=== PATIENT | male | born 1965 | race Hispanic/Latino ===

== ENCOUNTER → 2018-10-31 | Outpatient (CLI) | payer BC | END | disposition home or self-care (01) | LOC: SHCH 12:45 | PROVIDERS: ATTEND Internal Medicine Cardiovascular Disease | DX: I87.2 Venous insufficiency (chronic) (peripheral) (principal) | CPT/HCPCS: 93970 ==

== ENCOUNTER 2019-07-21 04:19 | Emergency (ER) | payer BC ==
[2019-07-21 04:45] LABS: BASOPHILS % (AUTO) 0.5 % (0.0-5.0); EOSINOPHILS % (AUTO) 2.5 % (0.0-8.0); HEMATOCRIT 41.1 % (42-54); LYMPHOCYTES % (AUTO) 34.5 % (21.0-51.0); MEAN CORPUSCULAR HEMOGLOBIN 22.9 pg (27.0-33.0); MEAN CORPUSCULAR HGB CONC 30.7 g/dL (32.0-36.0); MEAN CORPUSCULAR VOLUME 74.7 fL (79-99); MONOCYTES % (AUTO) 6.7 % (3.0-13.0); NEUTROPHILS % (AUTO) 55.3 % (40.0-77.0); PLATELET COUNT (AUTO) 199 K/uL (130-400); RED CELL DISTRIBUTION WIDTH 15.7 % (11.0-15.5); WHITE BLOOD COUNT (AUTO) 6.3 K/uL (4.8-10.8)
[2019-07-21 04:47] LABS: APPEARANCE,URINE Clear (CLEAR); BILIRUBIN,URINE Negative (NEGATIVE); COLOR,URINE Yellow (YELLOW); GLUCOSE, URINE (UA) >=1000 mg/dL (NEGATIVE); KETONES,URINE Negative (NEGATIVE); LEUKOCYTE ESTERASE ,URINE Negative (NEGATIVE); NITRATE,URINE Negative (NEGATIVE); OCCULT BLOOD,URINE Negative (NEGATIVE); PH,URINE 5.5 (5.0-8.0); PROTEIN,URINE POS 1+ mg/dL (NEGATIVE); UROBILINOGEN,URINE 0.2 mg/dL (0.2-1.0)
[2019-07-21 04:53] LABS: AMPHET/METH SCREEN,URINE NEGATIVE (NEGATIVE); BARBITURATE SCREEN, URINE NEGATIVE (NEGATIVE); BENZODIAZEPINES SCREEN,URINE NEGATIVE (NEGATIVE); CANNABINOID SCREEN,URINE NEGATIVE (NEGATIVE); COCAINE SCREEN,URINE NEGATIVE (NEGATIVE); OPIATE SCREEN,URINE NEGATIVE (NEGATIVE); PHENCYCLIDINE SCREEN,URINE NEGATIVE (NEGATIVE)
[2019-07-21 04:57] LABS: BACTERIA,URINE None Seen /HPF (None Seen); RBC,URINE None Seen /HPF (0-1); SQUAMOUS EPITHELIAL CELL,UR Few /HPF (0-2); WBC,URINE None Seen /HPF (0-1)
[2019-07-21 05:03] LABS: CARBON DIOXIDE 24 mmol/L (21-32); CHLORIDE 99 mmol/L (101-111); CREATININE 1.5 mg/dL (0.5-1.5); GLOMERULAR FILTR. RATE CALC 51 mL/min (>60); GLUCOSE,RANDOM 268 mg/dL (70-105); POTASSIUM 3.6 mmol/L (3.5-5.1); SODIUM SERUM 138 mmol/L (136-145); UREA NITROGEN, BLOOD 18 mg/dL (7-18)
[2019-07-21 05:14] LABS: ALANINE AMINOTRANSFERASE 107 U/L (12-78); ALBUMIN 3.9 g/dL (3.5-5.0); ALCOHOL, BLOOD 141 mg/dL (0-10); ASPARTATE AMINOTRANSFERASE 117 U/L (10-37); BILIRUBIN,TOTAL 0.4 mg/dL (0.2-1.0); TOTAL PROTEIN, SERUM 8.5 g/dL (6.0-8.3)
[2019-07-21 05:19] LABS: CREATINE KINASE, TOTAL 417 U/L (21-232)
[2019-07-21 05:20] LABS: ACETAMINOPHEN < 1 mcg/mL (10-29); SALICYLATE < 2.8 mg/dL (2.8-20.0)
== END 2019-07-21 12:29 | disposition home or self-care (01) ==
LOC: EDH 04:19
DX: T42.6X2A Poisoning by other antiepileptic and sedative-hypnotic drugs, intentional self-harm, initial encounter (principal); T45.522A Poisoning by antithrombotic drugs, intentional self-harm, initial encounter; F10.129 Alcohol abuse with intoxication, unspecified; E11.9 Type 2 diabetes mellitus without complications; I10 Essential (primary) hypertension; F41.9 Anxiety disorder, unspecified; F32.9 Major depressive disorder, single episode, unspecified; Z79.899 Other long term (current) drug therapy; Z98.890 Other specified postprocedural states; Y92.89 Other specified places as the place of occurrence of the external cause
CPT/HCPCS: 36415; 80053; 80305; 81001; 82550; 84484; 85025; 93005; 99284; G0480 ×3; G0481

== ENCOUNTER → 2020-10-12 | Outpatient (CLI) | payer BC | END | disposition home or self-care (01) | LOC: RAH 07:47 | PROVIDERS: ATTEND Internal Medicine Cardiovascular Disease | DX: Z09 Encounter for follow-up examination after completed treatment for conditions other than malignant neoplasm (principal); I82.492 Acute embolism and thrombosis of other specified deep vein of left lower extremity; I87.2 Venous insufficiency (chronic) (peripheral) | CPT/HCPCS: 93971 ==

== ENCOUNTER → 2021-03-01 | Outpatient (CLI) | payer BC | END | disposition home or self-care (01) | LOC: SHCH 15:25 | PROVIDERS: ATTEND Internal Medicine Cardiovascular Disease | DX: I51.7 Cardiomegaly (principal); E66.9 Obesity, unspecified; E78.5 Hyperlipidemia, unspecified; Z83.3 Family history of diabetes mellitus | CPT/HCPCS: 93306 ==

== ENCOUNTER → 2021-03-06 | Outpatient (CLI) | payer BC ==
[~2021-03-06] VITALS: Ht 172.7 cm; Wt 99.8 kg
[~2021-03-06] MED LIST: REGADENOSON 0.4 MG/5 ML PF SYG IVP SCH
== END | disposition home or self-care (01) ==
LOC: SHCH 08:46
PROVIDERS: ATTEND Internal Medicine Cardiovascular Disease
DX: R06.09 Other forms of dyspnea (principal); I20.9 Angina pectoris, unspecified
CPT/HCPCS: 78452; 93017; 96374; A9500 ×2; J2785

== ENCOUNTER → 2022-01-23 | Outpatient (CLI) | payer BC | END | disposition home or self-care (01) | LOC: RAH 10:43 | PROVIDERS: ATTEND Internal Medicine Gastroenterology | DX: R93.3 Abnormal findings on diagnostic imaging of other parts of digestive tract (principal) | CPT/HCPCS: 78264; A9541 ==

== ENCOUNTER → 2023-10-05 | Outpatient (CLI) | payer BC | LOC: SHCH 12:19 | PROVIDERS: ATTEND Internal Medicine Cardiovascular Disease | DX: I73.9 Peripheral vascular disease, unspecified (principal) | CPT/HCPCS: 93925 ==

== ENCOUNTER → 2024-01-27 | Outpatient (CLI) | payer BC | END | disposition home or self-care (01) | LOC: SHCH 09:35 | PROVIDERS: ATTEND Internal Medicine Cardiovascular Disease | DX: I07.1 Rheumatic tricuspid insufficiency (principal); R07.9 Chest pain, unspecified; I25.10 Atherosclerotic heart disease of native coronary artery without angina pectoris | CPT/HCPCS: 93306 ==

== ENCOUNTER → 2024-02-04 | Outpatient (CLI) | payer BC ==
[2024-02-04] MEDS: REGADENOSON 0.4 MG/5 ML PF SYG IVP ONE (11:14)
== END | disposition home or self-care (01) ==
LOC: SHCH 08:16
PROVIDERS: ATTEND Internal Medicine Cardiovascular Disease
DX: R07.9 Chest pain, unspecified (principal); I25.10 Atherosclerotic heart disease of native coronary artery without angina pectoris; R94.31 Abnormal electrocardiogram [ECG] [EKG]
CPT/HCPCS: 78452; 93017; J2785; A9500 ×2; 96374

== ENCOUNTER 2024-03-23 06:31 | Observation (INO) | payer BC ==
[2024-03-19 12:37] VITALS: BP 127/67; PULSE 73; RESP 16; TEMP 97.3
[2024-03-19 12:41] LABS: BASOPHILS # (AUTO) 0.02 K/uL (0.00-0.20); BASOPHILS % (AUTO) 0.3 % (0.0-5.0); EOSINOPHILS # (AUTO) 0.14 K/uL (0.00-0.70); HEMATOCRIT 41.3 % (42-54); IMMATURE GRANULOCYTE ABSOLUTE 0.03 K/uL (0-1); LYMPHOCYTES # (AUTO) 1.8 K/uL (1.0-4.8); LYMPHOCYTES % (AUTO) 26.2 % (21.0-51.0); MEAN CORPUSCULAR HEMOGLOBIN 23.2 pg (27.0-33.0); MEAN CORPUSCULAR HGB CONC 31.2 g/dL (32.0-36.0); MEAN CORPUSCULAR VOLUME 74.4 fL (79-99); MONOCYTES # (AUTO) 0.6 K/uL (0.1-1.0); MONOCYTES % (AUTO) 8.3 % (3.0-13.0); NEUTROPHILS # (AUTO) 4.3 K/uL (1.8-7.7); NEUTROPHILS % (AUTO) 62.8 % (40.0-77.0); PLATELET COUNT (AUTO) 196 K/uL (130-400); RED BLOOD CELL COUNT(AUTO) 5.55 MIL/uL (4.50-6.20); RED CELL DISTRIBUTION WIDTH 13.9 % (11.0-15.5); WHITE BLOOD COUNT (AUTO) 6.8 K/uL (4.8-10.8)
[2024-03-19 12:49] LABS: CREATININE 1.5 mg/dL (0.5-1.3); POTASSIUM 3.9 mmol/L (3.5-5.1)
[2024-03-19 12:59] LABS: APPEARANCE,URINE CLEAR (CLEAR); BILIRUBIN,URINE NEGATIVE (NEGATIVE); COLOR,URINE LIGHT-YELLOW (YELLOW); GLUCOSE, URINE (UA) >=1000 mg/dL (NEGATIVE); KETONES,URINE NEGATIVE (NEGATIVE); LEUKOCYTE ESTERASE ,URINE NEGATIVE Leu/uL (NEGATIVE); NITRATE,URINE NEGATIVE (NEGATIVE); OCCULT BLOOD,URINE NEGATIVE (NEGATIVE); PH,URINE 5.5 (5.0-8.0); PROTEIN,URINE 30 mg/dL (NEGATIVE); UROBILINOGEN,URINE 0.2 mg/dL (0.2-1.0)
[2024-03-19 13:02] LABS: INR 1.01 (0.85-1.15); PROTHROMBIN TIME 10.9 SEC (9.6-11.6)
[2024-03-19 13:03] LABS: PARTIAL THROMBOPLASTIN TIME 27.4 SEC (26.3-35.5)
[2024-03-19 13:15] LABS: B-TYPE NATRIURETIC PEPTIDE 13 pg/mL (0-100)
[2024-03-19 13:16] LABS: ADD UA MICROSCOPIC YES
[2024-03-19 13:23] LABS: RBC,URINE 0-1 /HPF (0-1); WBC,URINE 0-1 /HPF (0-1)
[~2024-03-23] VITALS: Ht 172.7 cm; Wt 99.8 kg
[2024-03-23] VITALS (25 sets, daily range): BP systolic 92–157; BP diastolic 45–100; PULSE 62–76; RESP 13–27; TEMP 97.1–98.7; O2SAT 95–99
[~2024-03-23 06:31] MED LIST changes: +AEC81 PO; +AMLO-257 PO; +CETI10CA5 PO; +DAPA10TA PO; +DICY10CA2 PO; +DULA0.75 SQ; +DULO60CA64 PO; +FENO54TA6 PO; +FERR-82 PO; +FOLI1 PO; +FURO20TA4 PO; +GABA300C PO; +INSU100I56 SQ; +INSU100V37 SQ; +ISOS30TA92 PO; +KETO.5OS OU; +LEVO100T12 PO; +LISI40TA9 PO; +MAGN250T35 PO; +METO-391 PO; +METO5TAB2 PO; +MULT-1367 PO; +PANT40TA54 PO; -REGADENOSON 0.4 MG/5 ML PF SYG IVP SCH; +ROSU10TA72 PO; +THIA250T10 PO; +VITAMIN B12 PO; +VITAMIN D3 PO
[2024-03-23] MEDS: 0.9%NACL 1000ML 1,000 ML IV ONE (08:19)
[2024-03-23] MEDS ORDERED: LIDOCAINE HCL 400MG/20ML VIAL ONE (08:29)
[2024-03-23] MEDS ORDERED: FENTanyl CITRate PF 50 MCG/1 ML 2ML VIAL ONE (08:29)
[2024-03-23] MEDS ORDERED: IOHEXOL 350 MG/ML 100ML INFUS..BTL IV ONE (08:30)
[2024-03-23] MEDS ORDERED: NITROGLYCERIN 50MG VIAL ONE (08:30)
[2024-03-23] MEDS ORDERED: MIDAZOLAM HCL 1 MG/ML 2ML VIAL ONE (08:31)
[2024-03-23] MEDS ORDERED: HEParin-NS 1,000 UNIT/500 ML 1,000 ML IV ONE (08:31)
[2024-03-23] MEDS ORDERED: BIVALIRUDIN 250 MG/VIAL IV ONE (08:38)
[2024-03-23] MEDS ORDERED: cloPIDOgrel 300MG TAB ONE (09:28)
[2024-03-23] MEDS ORDERED: DEXTROSE 50%-WATER 50 ML DISP.SYRIN IV PRN (10:00)
[2024-03-23] MEDS ORDERED: GLUCAGON 1MG KIT 1 MG ML IM PRN (10:00)
[2024-03-23] MEDS ORDERED: NITROGLYCERIN 0.4 MG SL TAB SL PRN (10:00)
[2024-03-23] MEDS: INSULIN humuLIN R 100 UNIT/ML 3ML SQ SCH (11:30)
[2024-03-24] VITALS (17 sets, daily range): BP systolic 135–181; BP diastolic 58–89; PULSE 66–78; RESP 15–63; TEMP 97.8–99; O2SAT 96
[2024-03-24 08:06] LABS: CREATININE 1.3 mg/dL (0.5-1.3); POTASSIUM 3.8 mmol/L (3.5-5.1)
[2024-03-24] MEDS: cloPIDOgrel 75MG TAB PO SCH (08:26)
[2024-03-24] MEDS ORDERED: 0.9% NACL 500ML IV.SOLN 500 ML IV SCH (08:30)
[2024-03-24] MEDS: amLODIPine 5 MG TAB PO ONE (11:25)
[2024-03-24] MEDS: metOPROLol sucCINATE 50 MG TAB.SR.24H PO ONE (11:25)
[2024-03-24] MEDS: LISINOPRIL 40 MG TABLET PO ONE (11:26)
[2024-03-24] MEDS: ISOSORBIDE MONO 30MG SR TAB PO ONE (13:16)
[2024-03-24] MEDS ORDERED: CLOP75TA32 PO (15:16)
== END 2024-03-24 15:40 | disposition home or self-care (01) ==
LOC: DAH 06:31 → DAHIP 06:32 → DAH 06:32 → 2BH 14:11
PROVIDERS: ADMIT Internal Medicine Cardiovascular Disease; ATTEND Internal Medicine Cardiovascular Disease
DX: I25.110 Atherosclerotic heart disease of native coronary artery with unstable angina pectoris (principal); I87.2 Venous insufficiency (chronic) (peripheral); I10 Essential (primary) hypertension; E78.49 Other hyperlipidemia; E11.51 Type 2 diabetes mellitus with diabetic peripheral angiopathy without gangrene; E66.9 Obesity, unspecified; Z79.4 Long term (current) use of insulin; Z68.33 Body mass index [BMI] 33.0-33.9, adult; Z95.5 Presence of coronary angioplasty implant and graft
CPT/HCPCS: 80048 ×2; 83880; 85025; 85610; 85730; 81001; 36415 ×2; 71045; 93005 ×2; 93458; 96372; 82948 ×4; C1894 ×2; C1725; C1874; C1769; C1887; Q9965 ×2; G0378 ×30; J3010; J3490 ×2; J7030; J2250; J1644; J0583; J1815; Q9967; A4215; A4223 ×3; A6402; A4222; A6260; A4221; A4663; A4216; A4606; C9600; 36430; 99156; 99157

== ENCOUNTER 2024-03-31 06:23 | Observation (INO) | payer BC ==
[2024-03-27 14:36] LABS: BASOPHILS # (AUTO) 0.01 K/uL (0.00-0.20); BASOPHILS % (AUTO) 0.2 % (0.0-5.0); EOSINOPHILS % (AUTO) 2.3 % (0.0-8.0); HEMATOCRIT 43.2 % (42-54); IMMATURE GRANULOCYTE ABSOLUTE 0.02 K/uL (0-1); LYMPHOCYTES # (AUTO) 1.4 K/uL (1.0-4.8); LYMPHOCYTES % (AUTO) 32.2 % (21.0-51.0); MEAN CORPUSCULAR HEMOGLOBIN 22.8 pg (27.0-33.0); MEAN CORPUSCULAR HGB CONC 30.6 g/dL (32.0-36.0); MEAN CORPUSCULAR VOLUME 74.5 fL (79-99); MONOCYTES # (AUTO) 0.5 K/uL (0.1-1.0); MONOCYTES % (AUTO) 10.4 % (3.0-13.0); NEUTROPHILS # (AUTO) 2.4 K/uL (1.8-7.7); NEUTROPHILS % (AUTO) 54.4 % (40.0-77.0); PLATELET COUNT (AUTO) 169 K/uL (130-400); RED CELL DISTRIBUTION WIDTH 13.5 % (11.0-15.5); WHITE BLOOD COUNT (AUTO) 4.4 K/uL (4.8-10.8)
[2024-03-27 14:39] VITALS: BP 134/69; PULSE 74; RESP 16; TEMP 97.3
[2024-03-27 14:46] LABS: APPEARANCE,URINE CLEAR (CLEAR); BILIRUBIN,URINE NEGATIVE (NEGATIVE); COLOR,URINE LIGHT-YELLOW (YELLOW); GLUCOSE, URINE (UA) >=1000 mg/dL (NEGATIVE); KETONES,URINE NEGATIVE (NEGATIVE); LEUKOCYTE ESTERASE ,URINE NEGATIVE Leu/uL (NEGATIVE); NITRATE,URINE NEGATIVE (NEGATIVE); OCCULT BLOOD,URINE NEGATIVE (NEGATIVE); PH,URINE 5.5 (5.0-8.0); PROTEIN,URINE 70 mg/dL (NEGATIVE); UROBILINOGEN,URINE 0.2 mg/dL (0.2-1.0)
[2024-03-27 14:48] LABS: INR 1.01 (0.85-1.15); PROTHROMBIN TIME 10.9 SEC (9.6-11.6)
[2024-03-27 14:50] LABS: CREATININE 1.5 mg/dL (0.5-1.3); PARTIAL THROMBOPLASTIN TIME 28.2 SEC (26.3-35.5); POTASSIUM 4.2 mmol/L (3.5-5.1)
[2024-03-27 14:50] LABS: ADD UA MICROSCOPIC YES
[2024-03-27 14:51] LABS: RBC,URINE 0-1 /HPF (0-1)
[2024-03-27 15:08] LABS: B-TYPE NATRIURETIC PEPTIDE < 5 pg/mL (0-100)
[~2024-03-31] VITALS: Ht 172.7 cm; Wt 98.4 kg
[2024-03-31] VITALS (13 sets, daily range): BP systolic 123–156; BP diastolic 57–74; PULSE 61–76; RESP 12–18; TEMP 97.5–98.5; O2SAT 98
[~2024-03-31 06:23] MED LIST changes: +CLOP75TA32 PO
[2024-03-31] MEDS: 0.9%NACL 1000ML 1,000 ML IV ONE (07:08)
[2024-03-31] MEDS: 0.9%NACL 1000ML 1,000 ML IV SCH ×2 (07:30→16:23)
[2024-03-31] MEDS ORDERED: BIVALIRUDIN 250 MG/VIAL IV ONE ×2 (08:40→10:22)
[2024-03-31] MEDS ORDERED: IOHEXOL-350 50ML VIAL IV ONE ×2 (08:41→11:14)
[2024-03-31] MEDS ORDERED: HEParin 10,000 UNIT/10ML (1,000 UNIT/ML) VIAL ONE (08:41)
[2024-03-31] MEDS ORDERED: HEParin-NS 1,000 UNIT/500 ML 1,000 ML IV ONE (08:41)
[2024-03-31] MEDS ORDERED: LIDOCAINE HCL 400MG/20ML VIAL ONE (08:42)
[2024-03-31] MEDS ORDERED: NITROGLYCERIN 50MG VIAL ONE (08:42)
[2024-03-31 08:55] LABS: CREATININE 1.1 mg/dL (0.5-1.3); POTASSIUM 3.6 mmol/L (3.5-5.1)
[2024-03-31] MEDS ORDERED: FENTanyl CITRate PF 50 MCG/1 ML 2ML VIAL ONE (08:57)
[2024-03-31] MEDS ORDERED: MIDAZOLAM HCL 1 MG/ML 2ML VIAL ONE ×2 (08:57→10:00)
[2024-03-31] MEDS ORDERED: HEParin-NS 1,000 UNIT/500 ML 500 ML IV ONE (10:09)
[2024-03-31] MEDS ORDERED: IOHEXOL-350 75 ML VIAL IV ONE (10:43)
[2024-03-31] MEDS ORDERED: cloPIDOgrel 300MG TAB ONE (11:31)
[2024-03-31] MEDS ORDERED: ASPIRIN 81MG CHEW TAB ONE (11:32)
[2024-03-31] MEDS ORDERED: DEXTROSE 50%-WATER 50 ML DISP.SYRIN IV PRN (12:00)
[2024-03-31] MEDS ORDERED: GLUCAGON 1MG KIT 1 MG ML IM PRN (12:00)
[2024-03-31] MEDS ORDERED: metoPROLOL tartRATE 1 MG/ML 5ML VIAL IV PRN (12:00)
[2024-03-31] MEDS ORDERED: NITROGLYCERIN 0.4 MG SL TAB SL PRN (12:00)
[2024-03-31] MEDS: INSULIN humuLIN R 100 UNIT/ML 3ML SQ SCH (16:30)
[2024-03-31] MEDS ORDERED: furoSEMIDE 20 MG TABLET PO PRN (19:30)
[2024-03-31] MEDS ORDERED: DICYCLOMINE HCL 20 MG TAB PO PRN (19:30)
[2024-03-31] MEDS: INSULIN GLARgine 100 UNITS/ML 10 ML VIAL SQ SCH (21:00)
[2024-03-31] MEDS: KETOROLAC OPTH 0.5% OU SCH (21:00)
[2024-03-31] MEDS: Duloxetine HCl 60 MG PO SCH (21:00)
[2024-03-31] MEDS: atorVAStatin 20 MG TABLET PO SCH (21:24)
[2024-03-31] MEDS: GABAPENTIN 300 MG CAPSULE PO SCH (21:25)
[2024-03-31] MEDS: INSULIN LISpro 100 UNIT/ML 3ML SQ SCH (21:30)
[2024-04-01 00:15] VITALS: BP 138/72; PULSE 78; RESP 18; TEMP 98.6
[2024-04-01 03:34] LABS: CREATININE 1.1 mg/dL (0.5-1.3); POTASSIUM 3.9 mmol/L (3.5-5.1)
[2024-04-01 04:32] VITALS: BP_SYST 156; BP_SYST 16; BP_DIAS 78; PULSE 70; RESP 18; TEMP 98.4
[2024-04-01 07:27] VITALS: O2SAT 97
[2024-04-01] MEDS: metoCLOPRAmide 5 MG TABLET PO SCH (08:28)
[2024-04-01] MEDS: metOPROLol sucCINATE 50 MG TAB.SR.24H PO SCH (08:28)
[2024-04-01] MEDS: ceTIRIzine HCL 5 MG TABLET PO SCH (08:29)
[2024-04-01] MEDS: ISOSORBIDE MONO 30MG SR TAB PO SCH (08:29)
[2024-04-01] MEDS: FERROUS SULFATE 325 MG TABLET.DR PO SCH (08:29)
[2024-04-01] MEDS: MULTIVITAMIN TABLET PO SCH (08:29)
[2024-04-01] MEDS: amLODIPine 5 MG TAB PO SCH (08:29)
[2024-04-01] MEDS: cloPIDOgrel 75MG TAB PO SCH (08:30)
[2024-04-01] MEDS: LISINOPRIL 40 MG TABLET PO SCH (08:30)
[2024-04-01] MEDS: ASPIRIN 81 MG EC TAB PO SCH (08:30)
[2024-04-01] MEDS: FOLic ACID 1 MG TABLET PO SCH (08:32)
[2024-04-01] MEDS: levoTHYROxine 100 MCG TABLET PO SCH (08:39)
[2024-04-01] MEDS: Dapagliflozin Propanediol (Farxiga) 10 MG PO SCH (08:44)
[2024-04-01] MEDS: Magnesium 500 MG PO SCH (08:44)
[2024-04-01] MEDS: THIAMINE MONONITRATE 250 MG PO SCH (08:44)
[2024-04-01] MEDS: INSULIN LISpro 100 UNIT/ML 3ML SQ SCH (08:45)
[2024-04-01 09:09] VITALS: BP 154/73; PULSE 71; RESP 18; TEMP 98.2
[2024-04-02] MEDS ORDERED: VITAMIN B12 PO SCH (09:00)
[2024-04-02] MEDS ORDERED: PANTOPrazole 40 MG TAB DR PO SCH (09:00)
[2024-04-07] MEDS ORDERED: Dulaglutide (Trulicity) 0.75 MG SQ SCH (09:00)
[2024-04-07] MEDS ORDERED: VITAMIN D3 50000 UNIT PO SCH (09:00)
== END 2024-04-01 10:40 | disposition home or self-care (01) ==
LOC: DAH 06:23 → DAHIP 06:24 → DAH 06:24 → 2DH 10:30
PROVIDERS: ADMIT Internal Medicine Cardiovascular Disease; ATTEND Internal Medicine Cardiovascular Disease
DX: I25.10 Atherosclerotic heart disease of native coronary artery without angina pectoris (principal); I10 Essential (primary) hypertension; E78.5 Hyperlipidemia, unspecified; Z79.899 Other long term (current) drug therapy; Z98.890 Other specified postprocedural states
CPT/HCPCS: 80048 ×3; 83880; 85025; 85610; 85730; 81001; 36415 ×3; 71045; 93005; 92978; 92979; 96372; 96360; 82948 ×5; C1769 ×3; C1887 ×2; C1894 ×3; C1725 ×7; C1874 ×2; C1760; C1753; Q9965 ×2; G0378 ×23; J3010; J3490 ×2; J7030; J2250 ×2; J1644 ×2; J0583 ×2; Q9967 ×2; A4215; A4223 ×3; A4222; A4221; A4663; A4216; A4606; C9600; C9601; 96361; 99156; 99157

== ENCOUNTER → 2025-03-12 | Outpatient (CLI) | payer BC ==
[~2025-03-12] MED LIST changes: +DICY-20 PO; -DICY10CA2 PO; +LISI40TA15 PO; -LISI40TA9 PO
--- NOTE | 2025-03-12 19:30 | HMCIMG ---
EXAM: CT Abdomen with and without IV contrast CLINICAL HISTORY: Alcoholic cirrhosis of liver without ascites TECHNIQUE: Axial computed tomography images of the abdomen and pelvis with and without intravenous contrast. CONTRAST: with and without intravenous contrast. COMPARISON: None provided. FINDINGS: LUNG BASES: The lung bases appear clear. No pleural effusions are seen. LIVER: Mildly enlarged caudate lobe of liver with a widened interlobar fissure The portal vein is mildly dilated, measuring approximately 15 mm. GALLBLADDER AND BILE DUCTS: The gallbladder appears within normal limits. No radioopaque gallstones are seen. No biliary ductal dilatation is evident. PANCREAS: Unremarkable. SPLEEN: Unremarkable. ADRENAL GLANDS: Unremarkable. KIDNEYS, URETERS, AND BLADDER: There is no hydronephrosis or hydroureter. No urinary calculi are seen. An exophytic cyst in the right kidney measures approx 16 x 14 mm Subcentimeter simple cortical cyst in the left kidney. STOMACH AND BOWEL: Unremarkable appearance of the stomach and bowel. No evidence of bowel obstruction. No evidence suggesting enteritis or colitis. APPENDIX: No evidence of acute appendicitis on CT examination. PERITONEUM: No free fluid. No free air. LYMPH NODES: No lymphadenopathy is evident. VASCULATURE: No evidence of abdominal aortic aneurysm. BONES: No aggressive appearing osseous lesion. No acute osseous pathology evident. Degenerative changes in the spine. IMPRESSION: 1. Mildly enlarged caudate lobe of liver with widened interlobar fissure and mild portal vein dilatation (15 mm), consistent with cirrhosis. 2. No acute abdominal or pelvic findings. /Parkman
== END | disposition home or self-care (01) ==
LOC: RAH 09:44
PROVIDERS: ATTEND Internal Medicine Gastroenterology
DX: K70.30 Alcoholic cirrhosis of liver without ascites (principal); R16.0 Hepatomegaly, not elsewhere classified; N28.1 Cyst of kidney, acquired; M47.816 Spondylosis without myelopathy or radiculopathy, lumbar region
CPT/HCPCS: 74170